=== PATIENT | male | born 1975 | race African-American/Black ===

== ENCOUNTER 2016-09-18 17:09 | Inpatient (IN) | payer OTHER ==
[2016-09-18 17:35] VITALS: BMI 34.5
--- NOTE | 2016-09-18 20:09 | HP ---
CIWA Score - CIWA Score Nausea/Vomitin Muscle Tremors: 3 Anxiety: 3 Agitation: 2 Paroxysmal Sweats: 3 Orientation: 1-Uncertain about Date Tacttile Disturbances: 2-Mild Itch/Numbness/Burn Auditory Disturbances: 0-None Visual Disturbances: 0-None Headache: 1-Very Mild CIWA-Ar Total Score: 18 Admission ROS S - HPI Chief Complaint: WITHDRAWAL SYMPTOMS Allergies/Adverse Reactions: Allergies Allergy/AdvReac Type Severity Reaction Status Date / Time shellfish derived Allergy Severe Rash Verified 09/18/16 17:48 History of Present Illness: 41 y.o. man with a long history of alcohol dependence is here seeking detox. He was last here in 11/2014 for detox. Does not have a significant period of sobriety. Exam Limitations: Intoxication - Ebola screening Have you traveled outside of the country in the last 21 days: No Have you had contact with anyone from an Ebola affected area: No Have you been sick,other than usual withdrawal symptoms: No Do you have a fever: No - Review of Systems Constitutional: Chills, Diaphoresis, Night Sweats, Changes in sleep EENT: reports: No Symptoms Reported Respiratory: reports: No Symptoms reported Cardiac: reports: Palpitations GI: reports: Diarrhea, Abdominal cramping : reports: No Symptoms Reported Musculoskeletal: reports: Back Pain, Joint Pain (Left hip) Integumentary: reports: No Symptoms Reported Neuro: reports: Headache, Numbness, Seizure (Last sz in 2014), Tingling, Tremors Endocrine: reports: No Symptoms Reported Hematology: reports: No Symptoms Reported Psychiatric: reports: Judgement Intact, Mood/Affect Appropiate, Orientated x3, Anxious, Depressed, other (Panic attacks) Other Systems: Reviewed and Negative Patient History - Patient Medical History Hx Anemia: No Hx Asthma: No Hx Chronic Obstructive Pulmonary Disease (COPD): No Hx Cancer: No Hx Cardiac Disorders: No Hx Congestive Heart Failure: No Hx Hypertension: Yes (not currently on meds.) Hx Hypercholesterolemia: No Hx Pacemaker: No HX Cerebrovascular Accident: No 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) Hx Dementia: No Hx Diabetes: No Hx Gastrointestinal Disorders: Yes (Dyspesia ) Hx Liver Disease: No Hx Genitourinary Disorders: No Hx Sexually Transmitted Disorders: No Hx Renal Disease (ESRD): No Hx Thyroid Disease: No Hx Human Immunodeficiency Virus (HIV): No (Neg ) Hx Hepatitis C: No Hx Depression: Yes Hx Suicide Attempt: No Hx Bipolar Disorder: No Hx Schizophrenia: No - Patient Surgical History Past Surgical History: Yes Hx Orthopedic Surgery: Yes (LEFT HIP SX AT 14 YRS OLD) Other Surgical History: R ankle fx sx in 02/08 Anesthesia Reaction: No - PPD History Previous Implant?: Yes Documented Results: Negative w/proof Implanted On Prior [facility] Admission?: Yes Date: 12/19/14 Results: 0 mm PPD to be Administered?: Yes - Reproductive History Patient is a Female of Child Bearing Age (11 -55 yrs old): No - Smoking Cessation Smoking history: Current every day smoker Have you smoked in the past 12 months: Yes Aproximately how many cigarettes per day: 4 Hx Chewing Tobacco Use: No Initiated information on smoking cessation: Yes 'Breaking Loose' booklet given: 09/18/16 - Substance & Tx. History Hx Alcohol Use: Yes Hx Substance Use: No Substance Use Type: Alcohol Hx Substance Use Treatment: Yes (Detox and rehab in 2014) - Substances Abused Alcohol Route: Oral Frequency: Daily Amount used: 1 LITER VODKA Age of first use: 20 Date of Last Use: 09/18/16 Family Disease History - Family Disease History Family Disease History: Diabetes: Grandparent (ETOH Dependence ), Other: Grandparent Admission Physical Exam BHS - Vital Signs Vital Signs: Vital Signs - 24 hr 09/18/16 17:32 Temperature 98.8 F Pulse Rate 100 H Respiratory 18 Rate Blood Pressure 136/85 - Physical General Appearance: Yes: Alcohol on Breath, Tremorous, Sweating, Anxious HEENTM: Yes: Normal ENT Inspection, Normocephalic, Normal Voice Respiratory: Yes: Chest Non-Tender, Lungs Clear, Normal Breath Sounds, No Respiratory Distress, No Accessory Muscle Use Neck: Yes: No masses,lesions,Nodules, Trachea in good position Breast: Yes: Breast Exam Deferred Cardiology: Yes: Regular Rhythm, Regular Rate Abdominal: Yes: Normal Bowel Sounds, Non Tender, Flat, Soft Genitourinary: Yes: Other (No complaints reported) Back: Yes: Normal Inspection Musculoskeletal: Yes: Back pain, Joint Stiffness (Left hip) Extremities: Yes: Tremors, Swelling (R LE) Neurological: Yes: Alert, Normal Mood/Affect, Normal Response Integumentary: Yes: Normal Color, Dry, Warm Lymphatic: Yes: Within Normal Limits - Diagnostic (1) Alcohol dependence with uncomplicated withdrawal Current Visit: Yes Status: Chronic (2) Arthritis of left hip Current Visit: Yes Status: Chronic Cleared for Admission [facility] - Detox or Rehab [facility] Level of Care: Medically Managed Detox Regimen/Protocol: Librium [facility] Breath Alcohol Content Breath Alcohol Content: 0.195 Urine Drug Screen - Results Drug Screen Negative: Yes
[2016-09-18] MEDS ORDERED: LOPERAMIDE HCL 2 MG CAPSULE PO PRN (20:18)
[2016-09-18] MEDS ORDERED: hydrOXYzine PAMOATE 50 MG CAPSULE (FP) PO PRN (20:18)
[2016-09-18] MEDS ORDERED: MAGNESIUM CITRATE 300 ML BOTTLE PO PRN (20:18)
[2016-09-18] MEDS ORDERED: P-EPHED 60MG/TRIPROLIDI 2.5MG TABLET PO PRN (20:18)
[2016-09-18] MEDS ORDERED: guaiFENesin/D-METHORPHAN HB 10 ML UNIT-DOSE CUPS PO PRN (20:18)
[2016-09-18] MEDS ORDERED: chlordiazePOXIDE HCL 25 MG CAPSULE PO ONE (20:18)
[2016-09-18] MEDS ORDERED: MENTHOL/PHENOL 1 EACH UD MM PRN (20:18)
[2016-09-18] MEDS ORDERED: MAG HYDROX/AL HYDROX/SIMETH 30 ML UNIT-DOSE CUP PO PRN (20:18)
[2016-09-18] MEDS ORDERED: MAGNESIUM HYDROX 2400MG/30ML ORAL SUSPENSION 30 ML CUP PO PRN (20:18)
[2016-09-18] MEDS ORDERED: ACETAMINOPHEN 325 MG TABLET (FP) PO PRN (20:18)
[2016-09-18] MEDS ORDERED: IBUPROFEN 400 MG TABLET (FP) PO PRN (20:18)
[2016-09-18] MEDS: THIAMINE HCL 100 MG TABLET (FP) PO SCH (23:06)
[2016-09-18] MEDS: diphenhydrAMINE HCL 50 MG CAPSULE PO PRN (23:12)
[2016-09-18] MEDS: chlordiazePOXIDE HCL 25 MG CAPSULE PO SCH (23:12)
[2016-09-19 02:40] LABS: URINE APPEARANCE CLEAR; URINE BILIRUBIN NEGATIVE (NEGATIVE); URINE BLOOD NEGATIVE (NEGATIVE); URINE COLOR STRAW; URINE GLUCOSE (UA) NEGATIVE (NEGATIVE); URINE KETONE NEGATIVE (NEGATIVE); URINE LEUK ESTERASE NEGATIVE (NEGATIVE); URINE NITRITE NEGATIVE (NEGATIVE); URINE PROTEIN NEGATIVE (NEGATIVE); URINE UROBILINOGEN NEGATIVE mg/dL (0.2-1.0)
[2016-09-19] MEDS: chlordiazePOXIDE HCL 25 MG CAPSULE PO SCH ×4 (05:52→22:17)
[2016-09-19 10:13] LABS: MCH 28.2 pg (25.7-33.7); MCHC 33.3 g/dl (32.0-35.9); MEAN CELL VOLUME 84.8 fl (80-96); MEAN PLT VOLUME 9.2 fl (7.5-11.1); PLATELET COUNT 208 K/MM3 (134-434); WHITE BLOOD COUNT 5.3 K/mm3 (4.0-10.0)
[2016-09-19] MEDS: PRENATAL VITAMINS W/ FOLIC ACID TABLET (FP) PO SCH (10:21)
[2016-09-19 11:15] LABS: ALBUMIN 3.3 g/dl (3.4-5.0); ALK PHOS 87 U/L (45-117); ANION GAP 11 (8-16); BILIRUBIN,TOTAL 0.5 mg/dL (0.2-1.0); CALCIUM 8.7 mg/dL (8.5-10.1); CO2 25 mmol/L (21-32); CREATININE 0.8 mg/dL (0.7-1.3); GLUCOSE,RANDOM 80 mg/dL (74-106); SGOT/AST 51 U/L (15-37); SGPT/ALT 84 U/L (12-78)
--- NOTE | 2016-09-19 12:17 | CONSULT ---
[facility] Psychiatric Consult - Data Date of interview: 09/19/16 Admission source: [facility] Identifying data: Readmission to [facility] for this 41 y/o AA male seeking detox treatment on for alcohol dependence.Patient is single without children,homeless,unemployed and supported on Welfare. Substance Abuse History: Discussed in this session.Patient confirmed this pattern of substance abuse. - Smoking Cessation. Smoking history: Current every day smoker. Have you smoked in the past 12 months: Yes. Aproximately how many cigarettes per day: 4. Hx Chewing Tobacco Use: No. Initiated information on smoking cessation: Yes. 'Breaking Loose' booklet given: . - Substance & Tx. History. Hx Alcohol Use: Yes. Hx Substance Use: No. Substance Use Type: Alcohol. Hx Substance Use Treatment: Yes (Detox and rehab in 2015). - Substances Abused. Alcohol. Route: Oral. Frequency: Daily. Amount used: 1 LITER VODKA. Age of first use: 20. Date of Last Use: 09/18/16 Medical History: Hypertension,dyspepsia,alcohol-related seizures and a remote history of orthosurgery (left hip at age 14). Psychiatric History: One psychiatric hospitalization at [facility] in 2014 ( released after 24 hrs).Diagnosed with MDD and Anxiety Disorder.Prescribed zoloft 50 mg/day.Mr Pearson is reportedly followed by a private psychiatrist in [facility].No history of suicide attempts. Physical/Sexual Abuse/Trauma History: Patient denies. Additional Comment: Drug Screen is negative. Mental Status Exam - Mental Status Exam Alert and Oriented to: Time, Place, Person Cognitive Function: Good Patient Appearance: Well Groomed Mood: Hopeful, Euthymic Affect: Appropriate, Normal Range Patient Behavior: Fatigued, Appropriate, Cooperative Speech Pattern: Clear Voice Loudness: Normal Thought Process: Goal Oriented Thought Disorder: Not Present Hallucinations: Denies Suicidal Ideation: Denies Homicidal Ideation: Denies Insight/Judgement: Poor Sleep: Fair Appetite: Good Muscle strength/Tone: Normal Gait/Station: Normal Psychiatric Findings - Problem List ([place] 1, 2,3) (1) Alcohol dependence with uncomplicated withdrawal Current Visit: Yes Status: Acute (2) Nicotine dependence Current Visit: Yes Status: Acute (3) Substance induced mood disorder Current Visit: Yes Status: Acute (4) Arthritis of left hip Current Visit: Yes Status: Chronic (5) Neuropathic arthritis Current Visit: Yes Status: Chronic - Initial Treatment Plan Initial Treatment Plan: Psychoeducation.Detoxification in progress.Zoloft 50 mg po daily.Side effects/benefits discussed with patient.Made aware of potential for sexual impotence and suicidal ideation.Patient reports that medication as well tolerated and efficacious.Consent (verbal) given.Observation.
--- NOTE | 2016-09-19 12:24 | EKG ---
Test Reason : Blood Pressure : / mmHG Vent. Rate : 093 BPM Atrial Rate : 093 BPM P-R Int : 162 ms QRS Dur : 104 ms QT Int : 378 ms P-R-T Axes : 037 008 028 degrees QTc Int : 469 ms NORMAL SINUS RHYTHM NORMAL ECG NO PREVIOUS ECGS AVAILABLE Confirmed by SARAY TAVERA, TONJA ([id number]) on 09/19/2016 12:23:55 PM Referred By: Confirmed By:TONJA SO MD
[2016-09-19] MEDS: chlordiazePOXIDE HCL 25 MG CAPSULE PO PRN (13:56)
[2016-09-19] MEDS: SERTRALINE HCL 50 MG TABLET (FP) PO SCH (13:56)
[2016-09-19] MEDS ORDERED: PSYLLIUM 5.85 GM PACKET PO ONE (14:15)
--- NOTE | 2016-09-19 15:05 | PN ---
S CIWA - CIWA Score Nausea/Vomitin Muscle Tremors: 4-Moderate,w/Arms Extend Anxiety: 3 Agitation: 3 Paroxysmal Sweats: 3 Orientation: 0-Oriented Tacttile Disturbances: 0-None Auditory Disturbances: 0-None Visual Disturbances: 0-None Headache: 0-None Present CIWA-Ar Total Score: 16 BHS Progress Note (SOAP) Subjective: Anxiety,tremors,sweating,interrupted sleep,restless,nausea. Objective: 09/19/16 15:04 Vital Signs - 8 hr 09/19/16 09/19/16 09:43 13:45 Temperature 97.2 F L 99 F Pulse Rate 121 H 116 H Respiratory 18 20 Rate Blood Pressure 143/91 136/87 Laboratory Tests 09/18/16 09/19/16 09/19/16 20:00 06:30 06:30 WBC 5.3 RBC 4.57 Hgb 12.9 Hct 38.8 MCV 84.8 MCH 28.2 MCHC 33.3 RDW 15.0 Plt Count 208 D MPV 9.2 Sodium 140 Potassium 4.2 Chloride 104 Carbon Dioxide 25 Anion Gap 11 BUN 13 D Creatinine 0.8 Creat Clearance w eGFR > 60 Random Glucose 80 Calcium 8.7 Total Bilirubin 0.5 AST 51 H D ALT 84 H D Alkaline Phosphatase 87 D Total Protein 7.0 Albumin 3.3 L Urine Color Straw Urine Appearance Clear Urine pH 5.0 Ur Specific [place] <= 1.005 Urine Protein Negative Urine Glucose (UA) Negative Urine Ketones Negative Urine Blood Negative Urine Nitrite Negative Urine Bilirubin Negative Urine Urobilinogen Negative Ur Leukocyte Esterase Negative RPR Titer 09/19/16 06:30 WBC RBC Hgb Hct MCV MCH MCHC RDW Plt Count MPV Sodium Potassium Chloride Carbon Dioxide Anion Gap BUN Creatinine Creat Clearance w eGFR Random Glucose Calcium Total Bilirubin AST ALT Alkaline Phosphatase Total Protein Albumin Urine Color Urine Appearance Urine pH Ur Specific [place] Urine Protein Urine Glucose (UA) Urine Ketones Urine Blood Urine Nitrite Urine Bilirubin Urine Urobilinogen Ur Leukocyte Esterase RPR Titer Nonreactive labs noted Assessment: 09/19/16 15:04 Withdrawal sx. Plan: Continue detox
[2016-09-19] MEDS: THIAMINE HCL 100 MG TABLET (FP) PO SCH (22:17)
[2016-09-19] MEDS: diphenhydrAMINE HCL 50 MG CAPSULE PO PRN (22:18)
[2016-09-20] MEDS: chlordiazePOXIDE HCL 25 MG CAPSULE PO SCH ×3 (05:52→17:34)
[2016-09-20] MEDS ORDERED: PSYLLIUM 5.85 GM PACKET PO SCH (10:00)
[2016-09-20] MEDS: PRENATAL VITAMINS W/ FOLIC ACID TABLET (FP) PO SCH (10:29)
[2016-09-20] MEDS: HYDROCHLOROTHIAZIDE 25 MG TABLET (FP) PO SCH (10:29)
[2016-09-20] MEDS: SERTRALINE HCL 50 MG TABLET (FP) PO SCH (10:29)
--- NOTE | 2016-09-20 13:46 | PN ---
[facility] CIWA - CIWA Score Nausea/Vomitin-No Nausea/No Vomiting Muscle Tremors: 3 Anxiety: 4-Mod. Anxious/Guarded Agitation: 3 Paroxysmal Sweats: 3 Orientation: 0-Oriented Tacttile Disturbances: 0-None Auditory Disturbances: 0-None Visual Disturbances: 0-None Headache: 0-None Present CIWA-Ar Total Score: 13 S Progress Note (SOAP) Subjective: Sweating,interrupted sleep,restless,tremors,anxiety. Objective: 09/20/16 13:45 Vital Signs - 8 hr 09/20/16 06:47 Temperature 97 F L Pulse Rate 86 Respiratory 18 Rate Blood Pressure 145/99 Laboratory Last Values WBC 5.3 K/mm3 (4.0-10.0) 09/19/16 06:30 RBC 4.57 M/mm3 (4.00-5.60) 09/19/16 06:30 Hgb 12.9 GM/dL (11.7-16.9) 09/19/16 06:30 Hct 38.8 % (35.4-49) 09/19/16 06:30 MCV 84.8 fl (80-96) 09/19/16 06:30 MCH 28.2 pg (25.7-33.7) 09/19/16 06:30 MCHC 33.3 g/dl (32.0-35.9) 09/19/16 06:30 RDW 15.0 % (11.9-15.9) 09/19/16 06:30 Plt Count 208 K/MM3 (134-434) D 09/19/16 06:30 MPV 9.2 fl (7.5-11.1) 09/19/16 06:30 Sodium 140 mmol/L (136-145) 09/19/16 06:30 Potassium 4.2 mmol/L (3.5-5.1) 09/19/16 06:30 Chloride 104 mmol/L (98-107) 09/19/16 06:30 Carbon Dioxide 25 mmol/L (21-32) 09/19/16 06:30 Anion Gap 11 (8-16) 09/19/16 06:30 BUN 13 mg/dL (7-18) D 09/19/16 06:30 Creatinine 0.8 mg/dL (0.7-1.3) 09/19/16 06:30 Creat Clearance w eGFR > 60 (>60) 09/19/16 06:30 Random Glucose 80 mg/dL (74-106) 09/19/16 06:30 Calcium 8.7 mg/dL (8.5-10.1) 09/19/16 06:30 Total Bilirubin 0.5 mg/dL (0.2-1.0) 09/19/16 06:30 AST 51 U/L (15-37) H D 09/19/16 06:30 ALT 84 U/L (12-78) H D 09/19/16 06:30 Alkaline Phosphatase 87 U/L (45-117) D 09/19/16 06:30 Total Protein 7.0 g/dl (6.4-8.2) 09/19/16 06:30 Albumin 3.3 g/dl (3.4-5.0) L 09/19/16 06:30 Urine Color Straw 09/18/16 20:00 Urine Appearance Clear 09/18/16 20:00 Urine pH 5.0 (5.0-8.0) 09/18/16 20:00 Ur Specific [place] <= 1.005 (1.005-1.025) 09/18/16 20:00 Urine Protein Negative (NEGATIVE) 09/18/16 20:00 Urine Glucose (UA) Negative (NEGATIVE) 09/18/16 20:00 Urine Ketones Negative (NEGATIVE) 09/18/16 20:00 Urine Blood Negative (NEGATIVE) 09/18/16 20:00 Urine Nitrite Negative (NEGATIVE) 09/18/16 20:00 Urine Bilirubin Negative (NEGATIVE) 09/18/16 20:00 Urine Urobilinogen Negative mg/dL (0.2-1.0) 09/18/16 20:00 Ur Leukocyte Esterase Negative (NEGATIVE) 09/18/16 20:00 RPR Titer Nonreactive (NONREACTIVE) 09/19/16 06:30 labs noted Assessment: 09/20/16 13:46 Withdrawal sx. Plan: Continue detox
[2016-09-20] MEDS: PSYLLIUM 5.85 GM PACKET PO SCH ×2 (14:04→22:25)
[2016-09-20] MEDS: chlordiazePOXIDE 5 MG CAPSULE PO SCH (22:24)
[2016-09-20] MEDS: THIAMINE HCL 100 MG TABLET (FP) PO SCH (22:24)
[2016-09-20] MEDS: GABAPENTIN 100 MG CAPSULE (FP) PO SCH (22:24)
[2016-09-20] MEDS: diphenhydrAMINE HCL 50 MG CAPSULE PO PRN (22:25)
[2016-09-21] MEDS: GABAPENTIN 100 MG CAPSULE (FP) PO SCH ×3 (05:32→22:23)
[2016-09-21] MEDS: chlordiazePOXIDE 5 MG CAPSULE PO SCH ×3 (05:32→17:16)
[2016-09-21] MEDS: PSYLLIUM 5.85 GM PACKET PO SCH ×3 (05:33→22:23)
[2016-09-21] MEDS: chlordiazePOXIDE HCL 25 MG CAPSULE PO PRN (09:14)
[2016-09-21] MEDS: PRENATAL VITAMINS W/ FOLIC ACID TABLET (FP) PO SCH (10:33)
[2016-09-21] MEDS: SERTRALINE HCL 50 MG TABLET (FP) PO SCH (10:33)
[2016-09-21] MEDS: HYDROCHLOROTHIAZIDE 25 MG TABLET (FP) PO SCH (10:34)
[2016-09-21] MEDS: CYCLOBENZAPRINE HCL 10 MG TABLET (FP) PO PRN ×2 (11:19→22:23)
--- NOTE | 2016-09-21 12:11 | PN ---
BHS Progress Note (SOAP) Subjective: Stomach Cramping, Diarrhea, Tremors, Anxious, Body Aches. Objective: PT. A & O X 3, OBSERVED AMBULATING ON UNIT. NO ACUTE DISTRESS. 09/21/16 12:09 Vital Signs Temperature 97.1 F L 09/21/16 09:29 Pulse Rate 97 H 09/21/16 09:29 Respiratory Rate 20 09/21/16 09:29 Blood Pressure 126/79 09/21/16 09:29 O2 Sat by Pulse Oximetry (%) Laboratory Tests 09/18/16 09/19/16 09/19/16 20:00 06:30 06:30 WBC 5.3 RBC 4.57 Hgb 12.9 Hct 38.8 MCV 84.8 MCH 28.2 MCHC 33.3 RDW 15.0 Plt Count 208 D MPV 9.2 Sodium 140 Potassium 4.2 Chloride 104 Carbon Dioxide 25 Anion Gap 11 BUN 13 D Creatinine 0.8 Creat Clearance w eGFR > 60 Random Glucose 80 Calcium 8.7 Total Bilirubin 0.5 AST 51 H D ALT 84 H D Alkaline Phosphatase 87 D Total Protein 7.0 Albumin 3.3 L Urine Color Straw Urine Appearance Clear Urine pH 5.0 Ur Specific [place] <= 1.005 Urine Protein Negative Urine Glucose (UA) Negative Urine Ketones Negative Urine Blood Negative Urine Nitrite Negative Urine Bilirubin Negative Urine Urobilinogen Negative Ur Leukocyte Esterase Negative RPR Titer 09/19/16 06:30 WBC RBC Hgb Hct MCV MCH MCHC RDW Plt Count MPV Sodium Potassium Chloride Carbon Dioxide Anion Gap BUN Creatinine Creat Clearance w eGFR Random Glucose Calcium Total Bilirubin AST ALT Alkaline Phosphatase Total Protein Albumin Urine Color Urine Appearance Urine pH Ur Specific [place] Urine Protein Urine Glucose (UA) Urine Ketones Urine Blood Urine Nitrite Urine Bilirubin Urine Urobilinogen Ur Leukocyte Esterase RPR Titer Nonreactive LABS NOTED. Assessment: 09/21/16 12:10 WITHDRAWAL SYMPTOMS. Plan: CONTINUE DETOX.
[2016-09-21] MEDS: chlordiazePOXIDE HCL 10 MG CAPSULE PO SCH (22:23)
[2016-09-21] MEDS: diphenhydrAMINE HCL 50 MG CAPSULE PO PRN (22:23)
[2016-09-21] MEDS: THIAMINE HCL 100 MG TABLET (FP) PO SCH (22:23)
[2016-09-22] MEDS: PSYLLIUM 5.85 GM PACKET PO SCH (05:35)
[2016-09-22] MEDS: chlordiazePOXIDE HCL 10 MG CAPSULE PO SCH (05:35)
[2016-09-22] MEDS: GABAPENTIN 100 MG CAPSULE (FP) PO SCH (05:37)
[2016-09-22] MEDS: CYCLOBENZAPRINE HCL 10 MG TABLET (FP) PO PRN (05:40)
[2016-09-22 06:21] VITALS: BP 118/69; PULSE 101; TEMP 96.5
[2016-09-22] MEDS: SERTRALINE HCL 50 MG TABLET (FP) PO SCH (09:06)
[2016-09-22] MEDS: PRENATAL VITAMINS W/ FOLIC ACID TABLET (FP) PO SCH (09:06)
[2016-09-22] MEDS: HYDROCHLOROTHIAZIDE 25 MG TABLET (FP) PO SCH (09:07)
--- NOTE | 2016-09-22 13:48 | DS ---
[facility] Detox Discharge Summary Admission Date: 09/18/16 Discharge Date: 09/22/16 - History Present History: Alcohol Dependence Additional Comments: PATIENT AGREED TO REFERRAL TO [facility] ([place], [place]) FOR AFTERCARE. PATIENT ADVISED TO FOLLOW-UP THERE PER DISCHARGE ARRANGEMENT. Pertinent Past History: HTN, Seizures (due to ETOH Withdrawal), Arthritis of Left hip. - Physical Exam Results Vital Signs: Vital Signs Temperature 96.5 F L 09/22/16 06:20 Pulse Rate 101 H 09/22/16 06:20 Respiratory Rate 18 09/22/16 06:20 Blood Pressure 118/69 09/22/16 06:20 O2 Sat by Pulse Oximetry (%) Pertinent Admission Physical Exam Findings: WITHDRAWAL SYMPTOMS. Laboratory Tests 09/18/16 09/19/16 09/19/16 20:00 06:30 06:30 WBC 5.3 RBC 4.57 Hgb 12.9 Hct 38.8 MCV 84.8 MCH 28.2 MCHC 33.3 RDW 15.0 Plt Count 208 D MPV 9.2 Sodium 140 Potassium 4.2 Chloride 104 Carbon Dioxide 25 Anion Gap 11 BUN 13 D Creatinine 0.8 Creat Clearance w eGFR > 60 Random Glucose 80 Calcium 8.7 Total Bilirubin 0.5 AST 51 H D ALT 84 H D Alkaline Phosphatase 87 D Total Protein 7.0 Albumin 3.3 L Urine Color Straw Urine Appearance Clear Urine pH 5.0 Ur Specific [place] <= 1.005 Urine Protein Negative Urine Glucose (UA) Negative Urine Ketones Negative Urine Blood Negative Urine Nitrite Negative Urine Bilirubin Negative Urine Urobilinogen Negative Ur Leukocyte Esterase Negative RPR Titer 09/19/16 06:30 WBC RBC Hgb Hct MCV MCH MCHC RDW Plt Count MPV Sodium Potassium Chloride Carbon Dioxide Anion Gap BUN Creatinine Creat Clearance w eGFR Random Glucose Calcium Total Bilirubin AST ALT Alkaline Phosphatase Total Protein Albumin Urine Color Urine Appearance Urine pH Ur Specific [place] Urine Protein Urine Glucose (UA) Urine Ketones Urine Blood Urine Nitrite Urine Bilirubin Urine Urobilinogen Ur Leukocyte Esterase RPR Titer Nonreactive LABS NOTED. - Treatment Hospital Course: Detox Protocol Followed, Detoxed Safely, Responded well, Discharged Condition Good - Medication Discharge Medications: Ambulatory Orders Sertraline HCl [Zoloft -] 50 mg PO DAILY #30 tablet 12/18/14 Gabapentin [Neurontin -] 300 mg PO Q8H 09/18/16 Psyllium Husk (with Sugar) [Metamucil Packet] 3.4 gm PO BID 09/19/16 Sertraline HCl [Zoloft -] 50 mg PO DAILY #30 tablet 09/19/16 Hydrochlorothiazide [Hctz -] 25 mg PO DAILY #30 cap 09/22/16 - Diagnosis (1) Alcohol dependence with uncomplicated withdrawal Status: Acute (2) Nicotine dependence Status: Chronic Qualifiers: Nicotine product type: cigarettes Substance use status: uncomplicated Qualified Code(s): F17.210 - Nicotine dependence, cigarettes, uncomplicated (3) Substance induced mood disorder Status: Acute (4) Arthritis of left hip Status: Chronic (5) Neuropathic arthritis Status: Chronic - AMA Did Patient Leave Against Medical Advice: No
== END 2016-09-22 09:18 | disposition home or self-care (01) | DRG 775 ==
LOC: YASAS 17:09 → Y3N 20:51
PROVIDERS: ADMIT Internal Medicine; ATTEND Surgery
PROC: HZ2ZZZZ Detoxification Services for Substance Abuse Treatment (ICD-10-PCS; principal; 2016-09-22)
DX: F10.230 Alcohol dependence with withdrawal, uncomplicated (principal); F17.210 Nicotine dependence, cigarettes, uncomplicated; F39 Unspecified mood [affective] disorder; F19.24 Other psychoactive substance dependence with psychoactive substance-induced mood disorder; I10 Essential (primary) hypertension; M13.851 Other specified arthritis, right hip; M14.60 Charcot's joint, unspecified site; Z86.69 Personal history of other diseases of the nervous system and sense organs
CPT/HCPCS: 36415; 80053; 81003; 85027; 86593; 93005; 93010